=== PATIENT | female | born 1955 | race African-American/Black ===

== ENCOUNTER 2019-03-01 18:23 | Emergency (ER) | payer OTHER ==
[~2019-03-01] VITALS: Ht 165.1 cm; Wt 75.0 kg
[2019-03-01] MEDS ORDERED: ONDANSETRON HCL 4MG/2ML INJ IV STA (19:18)
[2019-03-01] MEDS ORDERED: SODIUM CHLORIDE 0.9% 1,000 ML IV ONE (19:18)
[2019-03-01] MEDS ORDERED: MORPHINE SULFATE 4 MG/ML CPJ (NOT FOR IM USE) IV STA (19:18)
[2019-03-01 19:28] LABS: BASOPHILS % 0.6 % (0.0-2.0); EOSINOPHILS % 0.4 % (0.0-5.0); HEMATOCRIT. 36.4 % (36.0-48.0); HEMOGLOBIN. 12.2 g/dL (12.0-16.0); LYMPHOCYTES % 22.8 % (20.0-50.0); MEAN CORPUSCULAR HEMOGLOBIN 30.1 pg (28.0-32.0); MEAN PLATELET VOLUME 8.6 fl (7.4-10.4); MONOCYTES % 4.6 % (2.0-8.0); NEUTROPHILS % 71.6 % (40.0-76.0); PLATELET 333 x1000/uL (130-400); RED BLOOD CELL COUNT 4.05 mill/uL (4.2-5.4); RED CELL DISTRIBUTION WIDTH 17.4 % (11.6-14.6)
[2019-03-01 19:35] LABS: CHLORIDE 118 mEq/L (98-107)
[2019-03-01] MEDS ORDERED: TRAMADOL 50MG TABLET PO ONE (21:30)
[2019-03-01 21:47] LABS: CLARITY URINE CLEAR (CLEAR); COLOR URINE YELLOW (YELLOW); KETONES URINE NEGATIVE (NEGATIVE); LEUKOCYTE ESTERASE URINE TRACE (NEGATIVE); NITRITE URINE NEGATIVE (NEGATIVE); OCCULT BLOOD URINE NEGATIVE (NEGATIVE); PROTEIN URINE 1+ (NEGATIVE); SPECIFIC GRAVITY URINE 1.031 (1.005-1.030); UROBILINOGEN URINE 0.2 E.U./dL (0.2-1.0)
[2019-03-01 22:02] VITALS: BP 122/77
== END 2019-03-01 22:15 | disposition home or self-care (01) ==
LOC: EDSEX 18:23 → ER 18:23
DX: N39.0 Urinary tract infection, site not specified (principal); Z88.5 Allergy status to narcotic agent; Z87.19 Personal history of other diseases of the digestive system
CPT/HCPCS: 36415; 71045; 74176; 80053; 81003; 83690; 85025; 93005; 96374; 96375; 99284; J2270; J2405; J7030